=== PATIENT | female | born 1940 | race Caucasian/White ===

== ENCOUNTER 2017-07-12 17:58 | Observation (INO) | payer MEDICARE ==
[~2017-07-12] VITALS: Ht 152.4 cm; Wt 113.0 kg
[~2017-07-12 17:58] MED LIST: ADV250INH IH; ALBU8.5H2 INHALATION; CALC600T12 PO; CHOL200025 PO; CRES20T PO; HYDR25TA4 PO; LISI40TA PO; LORA1TAB PO; OXYGEN NASAL; PRAM0.252 PO; RANI150C4 PO; VENL75TA3 PO; WARF2TAB7 PO
[2017-07-12] MEDS ORDERED: Atropine 1 mg/10 mL (Code) Syringe IVPUSH PRN (18:55)
[2017-07-12] MEDS ORDERED: Senna-Docusate 8.6-50 mg Tablet PO PRN (18:55)
[2017-07-12] MEDS ORDERED: Ondansetron 2 mg/mL 2 mL Inj IVPUSH PRN (18:55)
[2017-07-12] MEDS ORDERED: Alum-Mag Hydrox-Simeth 30 mL Suspension PO PRN (18:55)
[2017-07-12] MEDS ORDERED: Polyethylene Glycol (PEG) 17 Gm Powder PO PRN (18:55)
[2017-07-12 18:59] VITALS: BP 143/76; PULSE 70; RESP 20; O2SAT 96
[2017-07-12 19:34] VITALS: PULSE 76
[2017-07-12 19:38] LABS: BASOPHILS % (AUTO) 0.4 % (0-3); EOSINOPHILS % (AUTO) 3.8 % (0-5); MONOCYTES % (AUTO) 9.7 % (4-12); Mean Corpuscular Hemoglobin 29.4 pg (27.0-35.0); Mean Corpuscular Volume 91.2 fL (81-100); NEUTROPHILS % (AUTO) 45.3 % (40-74); Platelet Count 188 bil/L (150-400)
[2017-07-12] MEDS ORDERED: HYDROcodone-APAP 7.5-325 mg Tablet PO PRN (19:50)
[2017-07-12] MEDS ORDERED: VENL75CA95 PO (19:50)
[2017-07-12] MEDS ORDERED: Fluticasone 0.05% 15 Spray/2 Gm 16 Gm Nasal Spray NASAL PRN (19:50)
[2017-07-12] MEDS ORDERED: SENN-133 PO (19:50)
[2017-07-12] MEDS ORDERED: HYDR-3825 PO (19:50)
[2017-07-12] MEDS ORDERED: FLUT16SP NASAL (19:50)
[2017-07-12] MEDS ORDERED: MULT-666 PO (19:50)
[2017-07-12] MEDS ORDERED: DOCU-41 PO (19:50)
[2017-07-12] MEDS ORDERED: RIVA20TA PO (19:50)
[2017-07-12] MEDS ORDERED: TRAZ-115 PO (19:50)
[2017-07-12 20:15] LABS: TROPONIN T < 0.010 ug/L (0.0-0.011)
[2017-07-12 20:16] LABS: Creatine Kinase 103 U/L (21-215); Magnesium 1.8 mg/dL (1.6-2.6)
--- NOTE | 2017-07-12 20:57 | PCM.HPMED ---
Subjective Date of Service Jul 12, 2017 Primary Provider: Admitting Physician: Johanna Burgos DO Primary Care Physician: Isabel Coley MD Attending Physician: Johanna Burgos DO Admit Status: From the Emergency Department, Direct Admit, 23-Hour Observation , Remote Telemetry Chief Complaint: Chest pain. History of Present Illness: Tolu Correia is a 76-year-old female with a past medical history significant for hypertension, hyperlipidemia, aortic stenosis, obstructive sleep apnea on CPAP, and pulmonary emboli on Xarelto who was a direct admit from [facility] for chest pain and pressure. The patient reports that she began experiencing substernal chest pain at rest since 0900. She describes the quality of the chest pain as a pressure sensation. She had accompanying shortness of breath. She had had nausea the last several days but did not have nausea with the substernal chest pressure. The substernal chest pressure did not radiate. However, she has been experiencing some pain underneath her shoulder blades. She reports that the chest pressure resolved with 2 doses of sublingual nitroglycer[place] [facility] She reports that this feels different than her episodes of pulmonary emboli in the past. She denies headache, vision changes, sore throat, current chest pain or shortness of breath, abdominal pain , nausea, vomiting, fever, chills, dysuria, constipation or diarrhea. She has no other complaints. Vital signs on admission: Temperature 36.9. Pulse 70. Respiratory rate 20. Blood pressure 143/76. Pulse ox 96% on room air. She received sublingual nitroglycerin 2 with relief of her chest pain at [facility] [place]. PCP Dr. Coley. . Review of Systems: A comprehensive review of systems was conducted with the patient and found to be negative except as above in the History of Present Illness. . Allergies Coded Allergies: citalopram (Verified Allergy, Severe, 07/12/17) niacin (Verified Allergy, Severe, 07/12/17) piroxicam (Verified Allergy, Severe, 07/12/17) prednisone (Verified Allergy, Severe, 07/12/17) tetracycline (Verified Allergy, Severe, 07/12/17) TAPE (Verified Allergy, Mild, blister, 07/12/17) hydromorphone (Verified Allergy, Unknown, 07/12/17) Uncoded Allergies: CORTISONE (Allergy, Severe, 08/13/09) SULFA (Allergy, Severe, 08/13/09) FELDEEN (Allergy, Unknown, 08/28/15) Home Medications Albuterol 2 puffs every 4 hours as needed for shortness of breath Docusate sodium 100 mg twice a day as needed for constipation. Fluticasone 1 spray intranasally twice a day as needed for allergies. Advair 1 puff inhaled twice a day. Hydrochlorothiazide 25 mg daily. Hydrocodone 7.5 325 mg every 6 hours as needed for pain Lisinopril 40 mg daily. Multivitamin 1 tablet daily. Pramipexole 0.25 mg daily at bedtime. Ranitidine 150 mg twice a day. Rosuvastatin 20 mg daily at bedtime. Senna 8.6 mg every 2 days as needed for constipation. Trazodone 100 mg daily at bedtime. Tums 600 mg daily. Venlafaxine 75 mg daily. Vitamin D3 2000 international units daily. Xarelto 20 mg daily. . PMH 1. Hypertension. 2. Hyperlipidemia. 3. Moderate aortic stenosis. 4. GERD. 5. Seasonal allergies. 6. Obstructive sleep apnea on CPAP. 7. History of PE x 2 on Xarelto. 8. Insomnia. 9. Restless leg syndrome. 10. Depression. 11. Chronic kidney disease. . Surgical History 1. Cholecystectomy. 2. Hysterectomy. 3. SBO with partial colectomy status post repair. 4. Right shoulder surgery. 5. Tonsillectomy. 6. Bilateral cataract removal. 7. Right carpal tunnel release. . Family History Mother who of emphysema. Father who had MS at 55 and coronary angioplasty and from bone cancer 76 years old. One half sister who has had blood clots. . Social History Hx Alcohol Use: Yes (1 glass of wine every 3 months) Hx Substance Use: No Hx Tobacco Use: No Smoking Status: Never Smoker Additional Information The patient is x 47 years. She has 4 children who are healthy. . Exam Vital Signs Vital Signs Label Value Date Time Patient Temperature 36.9 degrees C 07/12/171858 Temperature Source Oral 07/12/171858 Pulse 70 07/12/171858 Respiratory Rate 20 bpm 07/12/171858 Blood Pressure Assessment 143/76 (98) 07/12/171858 Location Right Arm Position Lying Bedside Pulse Oximetry 96 % 07/12/171858 Item Value Date Time Oxygen Delivery Method Room Air 07/12/171858 Exam General: Middle-age female lying in bed and in no acute distress, well-developed , well-nourished, appropriately interactive. HEENT: Normocephalic, atraumatic. External ears without defect. Pupils equal, round, and reactive to light. Anicteric sclerae, moist conjunctivae, and no lid lag. Oropharynx free of erythema and cobble stoning with moist mucosa. Neck: Supple with full range of motion. No jugular venous distension. No bruits. No lymphadenopathy or thyromegaly. Cardiovascular: Regular rate and rhythm with soft holosystolic murmur. No rubs or gallops appreciated Pulmonary: Clear to auscultation bilaterally without crackles, wheezes, or rhonchi. Normal respiratory effort with no use of accessory muscles. Abdomen: Soft, obese, nontender, nondistended, bowel sounds present. No hepatosplenomegaly or masses appreciated. Extremities: No clubbing, cyanosis, or edema. Skin: Normal temperature, turgor, and texture; no rash, ulcers, or subcutaneous nodules appreciated. Neurological: Cranial nerves grossly intact. Normal muscle strength, tone, and bulk. Reflexes, coordination, and sensory function within normal limits. No known gait impairment. Psychiatric: Normal mood and affect. Alert and oriented to person, place, and time. . Lab and Diagnostics Labs Item Value Date Time Sodium Level 141 mEq/L 07/12/171926 Potassium Level 4.1 mEq/L 07/12/171926 Chloride Level 104 mEq/L 07/12/171926 Carbon Dioxide Level 25 mmol/L 07/12/171926 Blood Urea Nitrogen 29 mg/dL H 07/12/171926 Creatinine 1.21 mg/dL H 07/12/171926 Estimat Glomerular Filtration Rate 62 mL/min 07/12/171926 Glucose Level 101 mg/dL H 07/12/171926 Calcium Level 9.5 mg/dL 07/12/171926 Magnesium Level 1.8 mg/dL 07/12/171926 Total Bilirubin 0.3 mg/dL 07/12/171926 Aspartate Amino Transf (AST/SGOT) 17 U/L 07/12/171926 Alanine Aminotransferase (ALT/SGPT) 10 U/L 07/12/171926 Alkaline Phosphatase 68 U/L 07/12/171926 Total Creatine Kinase 103 U/L 07/12/171926 Creatine Kinase MB 2.5 ng/mL 07/12/171926 Troponin T < 0.010 ug/L 07/12/171926 Total Protein 6.5 g/dL 07/12/171926 Albumin 3.8 g/dL 07/12/171926 Thyroid Stimulating Hormone (TSH) 0.638 uIU/mL 07/12/171926 Item Value Date Time White Blood Count 6.9 th/mm3 07/12/171926 Red Blood Count 3.74 mil/mm3 L 07/12/171926 Hemoglobin 11.0 g/dL L 07/12/171926 Hematocrit 34.1 % L 07/12/171926 Mean Corpuscular Volume 91.2 fL 07/12/171926 Mean Corpuscular Hemoglobin 29.4 pg 07/12/171926 Mean Corpuscular Hemoglobin Concent 32.3 % 07/12/171926 Red Cell Distribution Width 14.6 % 07/12/171926 Platelet Count 188 souleymane/L 07/12/171926 Neutrophils (%) (Auto) 45.3 % 07/12/171926 Lymphocytes (%) (Auto) 40.5 % 07/12/171926 Monocytes (%) (Auto) 9.7 % 07/12/171926 Eosinophils (%) (Auto) 3.8 % 07/12/171926 Basophils (%) (Auto) 0.4 % 07/12/171926 X-Rays, CTs and MRIs Portable chest x-ray performed at [facility]: Impression: Negative frontal chest. Electronically signed by: Alexa Maguire M.D. 07/12/2017 3:41 PM [place] time . 12-lead ECG EKG performed [place] [facility]: Sinus rhythm, heart rate 74, normal axis, normal intervals , normal R-wave progression, no pathological Q waves or acute ischemic changes such as ST elevation or depression. . Assessment & Plan Tolu Correia is a 76-year-old female with a past medical history significant for hypertension, hyperlipidemia, aortic stenosis, obstructive sleep apnea on CPAP, and pulmonary emboli on Xarelto who was a direct admit from [facility] for substernal chest pain and pressure. 1. Acute chest pain, present on admission. Active. - The patient presented with atypical substernal chest pain and pressure at rest with associated shortness of breath without radiation and relieved with sublingual nitroglycerin 2. - Cardiac risk factors include: Hypertension, hyperlipidemia, obesity, obstructive sleep apnea on CPAP, and family history. - Differential diagnosis includes: acute coronary syndrome versus worsening aortic stenosis. - Chest pain relieved with sublingual nitroglycerin 2 at [facility]. - EKG at [facility] demonstrated sinus rhythm without any acute ischemic changes such as ST elevation or depression, as above. - PRN EKG for chest pain. - Initial troponin I at [facility] was negative. Initial troponin < 0.010. Monitor serial troponin 3. - Chest x-ray performed at [facility] did not demonstrate any acute cardiopulmonary process, as above. - Continue rosuvastatin 20 mg daily at bedtime and lisinopril 40 mg daily. - Continue Xarelto for now pending cardiology's recommendations. - Fasting lipid panel ordered for tomorrow morning. - Ordered exercise stress test with echocardiogram and Latrice backup. NPO at midnight. - Dr. López the patient's american sign language interpreter plans to see her tomorrow. Cardiology has not been officially consulted. Chronic problems: 2. Chronic kidney disease, present on admission. Stable. - Initial creatinine 1.21. Baseline creatinine 1.2-1.3. - Avoid nephrotoxic agents. - Will hold off on IV fluid hydration as patient has moderate aortic stenosis. - Continue monitor creatinine daily. 3. History of bilateral pulmonary emboli, not present on admission. Stable. - Continue Xarelto 20 mg daily. - Continue albuterol 2 puffs every 4 hours as needed for shortness of breath and Advair 1 puff inhaled twice a day. Not clear if patient has COPD secondary to history of PEs. 4. Hypertension, present on admission. Stable. - Continue hydrochlorothiazide 25 mg daily and lisinopril 40 mg daily. 5. Hyperlipidemia, present on admission. Stable. - Continue rosuvastatin 20 mg daily at bedtime. 6. Aortic stenosis, present on admission. Presumed Stable. - Ordered echocardiogram to assess for worsening valvular disease. 7. GERD, present on admission. Stable. - Continue equivalent of ranitidine 150 mg twice a day. 8. Seasonal allergies, present on admission. Stable. - Continue fluticasone 1 spray intranasally twice a day as needed for allergies. 9. Obstructive sleep apnea on CPAP, present on admission. Stable. - Patient plans to have CPAP brought in. - May use nocturnal oxygen as needed. 10. Insomnia, present on admission. Stable. - Continue trazodone 100 mg daily at bedtime. 11. Restless leg syndrome, present on admission. Stable. - Continue pramipexole 0.25 mg daily at bedtime. 12. Depression, present on admission. Stable. - Continue venlafaxine 75 mg daily. PRN antiemetics: Zofran and Maalox. PRN bowel regimen: Senna and MiraLAX. PRN analgesics: Tylenol. Patient is admitted under observation status with expected length of stay less than 2 midnights due to severity of presenting symptoms, risk of adverse event, and complexity of treatment plan. . VTE Prophylaxis: Sub-Q Heparin (Unfractionated) Resuscitation Status: CPR: Attempt Resuscitation Attending Statement The patient was seen and examined together with house staff on 07/12/2017 and I agree with the history, exam and plan as outlined in the note above. copies to: Isabel Coley MD, [place] M DO Jul 12, 2017 18:57 Vivian Contreras DO Jul 13, 2017 02:13
[2017-07-12 21:10] LABS: APPEARANCE,URINE CLEAR (CLEAR,HAZY); COLOR,URINE YELLOW (YELLOW); PH,URINE 6.5 (5.0-8.0)
[2017-07-12 21:11] LABS: OCCULT BLOOD,URINE NEGATIVE (NEGATIVE); UROBILINOGEN,URINE NORMAL (NORMAL)
[2017-07-12] MEDS ORDERED: Albuterol 2.5 mg/3 mL Inhalation Solution NEB PRN (21:19)
[2017-07-12] MEDS: Fluticasone-Salmererol 250-50 Inhaler INHALATION SCH (21:55)
[2017-07-13 00:14] VITALS: BP 110/68; PULSE 88; RESP 20; O2SAT 95
[2017-07-13] MEDS ORDERED: Heparin 5,000 Unit/mL Inj SUBQ SCH (00:30)
[2017-07-13 01:56] LABS: Creatine Kinase 106 U/L (21-215)
[2017-07-13 05:15] VITALS: BP 116/73; PULSE 68; RESP 20; O2SAT 95
[2017-07-13 05:36] LABS: BASOPHILS % (AUTO) 0.5 % (0-3); MONOCYTES % (AUTO) 9.6 % (4-12); Mean Corpuscular Hemoglobin 29.9 pg (27.0-35.0); Mean Corpuscular Volume 92.4 fL (81-100); NEUTROPHILS % (AUTO) 43.7 % (40-74); Platelet Count 193 bil/L (150-400)
[2017-07-13] MEDS ORDERED: Lisinopril 40 Tablet PO SCH (08:30)
[2017-07-13] MEDS ORDERED: Venlafaxine XR 75 mg ER24 Capsule PO SCH (08:30)
[2017-07-13 08:54] VITALS: BP 131/79; PULSE 71; RESP 19; O2SAT 95
[2017-07-13] MEDS: Fluticasone-Salmererol 250-50 Inhaler INHALATION SCH (08:57)
[2017-07-13 10:15] VITALS: PULSE 71
--- NOTE | 2017-07-13 11:17 | DRSVH ---
[facility] [address] [place] [address] Echocardiogram Report Name: MICHEAL LOU RStudy Date: 07/13/2017 Height: 60 in Hospital Exam Location: [facility] Weight: 249 lb Gender: Female BSA: 2.0 m2 : 1940 Age: 76 yrs BP: 116/73 mmHg Reason For Study: CHEST PAIN Ordering Physician: Performed By: Irwin Brennan Interpretation Summary The left ventricle is normal in size. Left ventricular systolic function is normal without focal wall motion abnormalities. The ejection fraction is estimated to be 60-65%. The right ventricle is borderline dilated. The right ventricular systolic function is normal. The ascending aorta is normal in size. No significant changes since prior study. Procedure: A two-dimensional transthoracic echocardiogram with color flow and Doppler was performed in limited views only. The study quality was technically adequate. Comparison is made with the echocardiogram of 06/10/17. The patient was in normal sinus rhythm during the exam. Left Ventricle: The left ventricle is normal in size. There is normal left ventricular wall thickness. Left ventricular systolic function is normal without focal wall motion abnormalities. The ejection fraction is estimated to be 60-65%. Right Ventricle: The right ventricle is borderline dilated. The right ventricular systolic function is normal. Atria: The left atrium is mildly dilated. Right atrial size is normal. Mitral Valve: There is mild mitral annular calcification. The mitral valve leaflets are mildly calcified. There is mild mitral regurgitation. Great Vessels: The ascending aorta is normal in size. The IVC is of normal diameter and collapses greater than 50% with a sniff. This suggests a low right atrial pressure of 3 mm Hg. Pericardium/ Pleura There is no pericardial effusion. MMode/2D Measurements & Calculations LVIDd: 4.7 cm LVIDs: 2.5 cm LA A2 area: 21.1 cm FS: 46.6 % LA A4 area: 24.0 cm IVSd: 0.97 cm LA length (vol): 6.0 cm LVPWd: 0.81 cm LA vol: 71.7 ml LA vol index: 35.0 ml/m2 RA long axis: 5.2 cm asc Aorta Diam: 3.2 cm RA area: 19.2 cm RA vol: 60.3 ml RA : 29.4 ml/m2 LV dotson. diameter/BSA (cm/m^2): 2.3 LV sys. diameter/BSA (cm/m^2): 1.2 RVD1 (basal): 3.8 cm RVD2 (mid): 4.0 cm Reading Physician:EDUARDO
[2017-07-13 13:25] VITALS: BP 124/65; PULSE 65; RESP 20; O2SAT 97
[2017-07-13 16:18] VITALS: BP 118/74; PULSE 74; RESP 19; O2SAT 95
--- NOTE | 2017-07-13 16:24 | PCM.DIMED ---
Discharge Instructions Date of Service Jul 13, 2017 Dates of Hospitalization Jul 12, 2017 at 18:53 Discharge Diagnosis Discharge Diagnosis 1. Acute chest pain, present on admission.resolved ACS ruled out probably due to GERD Chronic problems: 2. Chronic kidney disease, present on admission. Stable. 3. History of bilateral pulmonary emboli, not present on admission. Stable. 4. Hypertension, present on admission. Stable. 5. Hyperlipidemia, present on admission. Stable. 6. Aortic stenosis, present on admission. Presumed Stable. 7. GERD, present on admission. Stable. 8. Seasonal allergies, present on admission. Stable. 9. Obstructive sleep apnea on CPAP, present on admission. Stable. 10. Insomnia, present on admission. Stable. 11. Restless leg syndrome, present on admission. Stable. 12. Depression, present on admission. Stable. Diet Discharge Diet: Low fat, Low Sodium, Heart Healthy Activity Discharge Activity: Limited until seen by PCP Call your provider Call your provider for: Fever or Chills, Shortness of breath, Bleeding, Chest pain, Vomitting, Excessive diarrhea, Weakness (unilateral) Patient Instructions Patient Instructions You were hospitalized due to chest pain which is resolved. ACS/heart attack ruled out. Echocardiogram unchanged from prior studies and normal stress test. Chest pain probably due to acid reflux. Continue ranitidine as usual. Follow -up with PCP in 1-2 weeks. Follow-up Provider: Isabel Coley MD Follow-up with PCP in: 1 week Cory Stratton MD Jul 13, 2017 16:24
--- NOTE | 2017-07-13 19:48 | DRSVH ---
Caution: Report not yet finalized and possibly incomplete! PROCEDURE: ONE DAY PHARMACOLOGICAL STRESS TEST. Rest and pharmacological stress myocardial perfusio n SPECT with gated imaging and ejection fraction RADIOPHARMACEUTICAL: mCi of Tc-99m tetrofosmin IV at rest and mCi of Tc-99m tetrofosmi n IV at peak effect of pharmacological stress. A [id number] was performed. INDICATIONS: Chest pain TECHNIQUE: Radiopharmaceutical was injected at peak stress test, and also at rest. SPECT images wer e obtained. SPECT myocardial perfusion images were displayed in short axis, horizontal long axis, an d vertical long axis views. Gated images were reviewed using [employer] software. COMPARISON: None. CARDIAC STRESS: A pharmacologic stress test was performed under the supervision of attending staff u sing an infusion of Lexiscan. Hemodynamic Data: There is normal blood pressure and heart rate response to pharmacologic stress. Symptoms: The patient denied anginal chest pain. Aminophylline: 100 mg. EKG: No diagnostic changes of ischemia, no ectopy. FINDINGS: Raw Data: There is good myocardial uptake of radiotracer. No significant motion artifact. Left Ventricular Function: Gated images demonstrate normal left ventricular wall thickening. No seg mental wall motion abnormalities. No transient ischemic dilation visually. Left ventricular resting end diastolic volume is 80 mL. Left ventricular stress ejection fraction is 81%; normal range is ab ove 45%. Myocardial Perfusion: There is normal distribution of activity in the right and left ventricular nataliya cardium. No fixed or reversible perfusion defects. IMPRESSION: 1. No significant ST-T changes. 2. No chest pain. 3. No arrhythmia. 4. No ischemia. 5. Normal ejection fraction. Dictated by: Diego López M.D. on 07/13/2017 at 16:49 Transcribed by: ANGELICA on 07/13/2017 at 22:48 Blanks in RADIOPHARMACEUTICAL section of template, thanks!
--- NOTE | 2017-07-13 20:32 | PCM.DC.MED ---
Discharge Summary Date of Service Jul 13, 2017 Dates of Hospitalization Date of Hospital Admission Jul 12, 2017 at 18:53 Date of Discharge: Jul 13, 2017 Providers: Admitting Physician: Vivian Contreras DO Primary Care Physician: Isabel Coley MD Attending Physician: Cory Stratton MD Diagnosis at Time of Discharge Diagnosis at Time of Discharge 1. Acute chest pain, present on admission.resolved ACS ruled out probably due to GERD Chronic problems: 2. Chronic kidney disease, present on admission. Stable. 3. History of bilateral pulmonary emboli, not present on admission. Stable. 4. Hypertension, present on admission. Stable. 5. Hyperlipidemia, present on admission. Stable. 6. Aortic stenosis, present on admission. Presumed Stable. 7. GERD, present on admission. Stable. 8. Seasonal allergies, present on admission. Stable. 9. Obstructive sleep apnea on CPAP, present on admission. Stable. 10. Insomnia, present on admission. Stable. 11. Restless leg syndrome, present on admission. Stable. 12. Depression, present on admission. Stable. Consultations cardiology Dr López by phone Procedures XRay, CTs & MRIs Portable chest x-ray performed at [facility]: Impression: Negative frontal chest. Electronically signed by: Alexa Maguire M.D. 07/12/2017 3:41 PM [place] time . ECG 12 Lead EKG performed at [facility]: Sinus rhythm, heart rate 74, normal axis, normal intervals , normal R-wave progression, no pathological Q waves or acute ischemic changes such as ST elevation or depression. . Cardiac Echo Impression Interpretation Summary The left ventricle is normal in size. Left ventricular systolic function is normal without focal wall motion abnormalities. The ejection fraction is estimated to be 60-65%. The right ventricle is borderline dilated. The right ventricular systolic function is normal. The ascending aorta is normal in size. No significant changes since prior study. Other Diagnostics STRESS TEST NEGATIVE PROCEDURE: ONE DAY PHARMACOLOGICAL STRESS TEST. Rest and pharmacological stress myocardial perfusion SPECT with gated imaging and ejection fraction RADIOPHARMACEUTICAL: mCi of Tc-99m tetrofosmin IV at rest and mCi of Tc-99m tetrofosmin IV at peak effect of pharmacological stress. A one- day-protocol was performed. INDICATIONS: Chest pain FINDINGS: Raw Data: There is good myocardial uptake of radiotracer. No significant motion artifact. Left Ventricular Function: Gated images demonstrate normal left ventricular wall thickening. No segmental wall motion abnormalities. No transient ischemic dilation visually. Left ventricular resting end diastolic volume is 80 mL. Left ventricular stress ejection fraction is 81%; normal range is above 45%. Myocardial Perfusion: There is normal distribution of activity in the right and left ventricular myocardium. No fixed or reversible perfusion defects. IMPRESSION: 1. No significant ST-T changes. 2. No chest pain. 3. No arrhythmia. 4. No ischemia. 5. Normal ejection fraction. Dictated by: Diego López M.D. on 07/13/2017 at 16:49 Brief History per HPI Tolu Correia is a 76-year-old female with a past medical history significant for hypertension, hyperlipidemia, aortic stenosis, obstructive sleep apnea on CPAP, and pulmonary emboli on Xarelto who was a direct admit from [facility] for chest pain and pressure. The patient reports that she began experiencing substernal chest pain at rest since 0900. She describes the quality of the chest pain as a pressure sensation. She had accompanying shortness of breath. She had had nausea the last several days but did not have nausea with the substernal chest pressure. The substernal chest pressure did not radiate. However, she has been experiencing some pain underneath her shoulder blades. She reports that the chest pressure resolved with 2 doses of sublingual nitroglycerin at [facility]. She reports that this feels different than her episodes of pulmonary emboli in the past. She denies headache, vision changes, sore throat, current chest pain or shortness of breath, abdominal pain , nausea, vomiting, fever, chills, dysuria, constipation or diarrhea. She has no other complaints. Vital signs on admission: Temperature 36.9. Pulse 70. Respiratory rate 20. Blood pressure 143/76. Pulse ox 96% on room air. She received sublingual nitroglycerin 2 with relief of her chest pain at [facility] ED. PCP Dr. Coley. . Hospital Course Tolu Correia is a 76-year-old female with a past medical history significant for hypertension, hyperlipidemia, aortic stenosis, obstructive sleep apnea on CPAP, and pulmonary emboli on Xarelto who was a direct admit from [facility] for substernal chest pain and pressure. 1. Acute chest pain, present on admission. resolved,ACS ruled out - The patient presented with atypical substernal chest pain and pressure at rest with associated shortness of breath without radiation and relieved with sublingual nitroglycerin 2.ACS ruled out based on EKG,echo,stress test .pain resolved . probably due to GERD,advised to c/w ranitidine - Cardiac risk factors include: Hypertension, hyperlipidemia, obesity, obstructive sleep apnea on CPAP, and family history. - EKG at [facility] demonstrated sinus rhythm without any acute ischemic changes such as ST elevation or depression, as above. - Continue rosuvastatin 20 mg daily at bedtime and lisinopril 40 mg daily. - Continue Xarelto - d/w Dr. López the patient's dollyman Chronic problems: 2. Chronic kidney disease, present on admission. Stable. - Initial creatinine 1.21. Baseline creatinine 1.2-1.3. 3. History of bilateral pulmonary emboli, not present on admission. Stable. - Continue Xarelto 20 mg daily. - Continue albuterol 2 puffs every 4 hours as needed for shortness of breath and Advair 1 puff inhaled twice a day -PE workup not done. Patient on Ac and compliant. no EKG or echo evidence of large PE. pain resolved.no leg swelling .may need to do VQ scan if pain recurs 4. Hypertension, present on admission. Stable. - Continue hydrochlorothiazide 25 mg daily and lisinopril 40 mg daily. 5. Hyperlipidemia, present on admission. Stable. - Continue rosuvastatin 20 mg daily at bedtime. 6. Aortic stenosis, present on admission. Presumed Stable. stable 7. GERD, present on admission. Stable. - Continue equivalent of ranitidine 150 mg twice a day. 8. Seasonal allergies, present on admission. Stable. - Continue fluticasone 1 spray intranasally twice a day as needed for allergies. 9. Obstructive sleep apnea on CPAP, present on admission. Stable. - Patient has CPAP 10. Insomnia, present on admission. Stable. - Continue trazodone 100 mg daily at bedtime. 11. Restless leg syndrome, present on admission. Stable. - Continue pramipexole 0.25 mg daily at bedtime. 12. Depression, present on admission. Stable. - Continue venlafaxine 75 mg daily. discharged home stable on discharge she agrees with plan of care Exam Vital Signs (Last) Date Time Temp Pulse Resp B/P Pulse Ox O2 Delivery O2 Flow Rate FiO2 9/26/17 16:18 36.7 74 19 118/74 95 Room Air 07/13/17 00:14 2.00 Exam General: Middle-age female lying in bed and in no acute distress, well-developed , well-nourished, appropriately interactive. HEENT: Normocephalic, atraumatic. External ears without defect. Pupils equal, round, and reactive to light. Anicteric sclerae, moist conjunctivae, and no lid lag. Oropharynx free of erythema and cobble stoning with moist mucosa. Neck: Supple with full range of motion. No jugular venous distension. No bruits. No lymphadenopathy or thyromegaly. Cardiovascular: Regular rate and rhythm with soft holosystolic murmur. No rubs or gallops appreciated Pulmonary: Clear to auscultation bilaterally without crackles, wheezes, or rhonchi. Normal respiratory effort with no use of accessory muscles. Abdomen: Soft, obese, nontender, nondistended, bowel sounds present. No hepatosplenomegaly or masses appreciated. Extremities: No clubbing, cyanosis, or edema. Skin: Normal temperature, turgor, and texture; no rash, ulcers, or subcutaneous nodules appreciated. Neurological: Cranial nerves grossly intact. Normal muscle strength, tone, and bulk. Reflexes, coordination, and sensory function within normal limits. No known gait impairment. Psychiatric: Normal mood and affect. Alert and oriented to person, place, and time. . Test 07/12/17 19:27 07/12/17 20:43 07/13/17 01:02 07/13/17 05:10 Hemoglobin A1c 5.7% (4.8-5.6) Magnesium Level 1.8mg/dL (1.6-2.6) Total Bilirubin 0.3mg/dL (0.0-1.2) Aspartate Amino Transf (AST/SGOT) 17U/L (0-50) Alanine Aminotransferase (ALT/SGPT) 10U/L (0-32) Alkaline Phosphatase 68U/L (25-165) Total Protein 6.5g/dL (6.4-8.4) Albumin 3.8g/dL (3.4-5.0) Thyroid Stimulating Hormone (TSH) 0.638uIU/mL (0.450-4.500) Urine Color Yellow (YELLOW) Urine Appearance Clear (CLEAR,HAZY) Urine pH 6.5 (5.0-8.0) Urine Specific [place] 1.010 (1.003-1.035) Urine Protein Negativemg/dL (NEG,TRACE) Urine Glucose (UA) Negativemg/dL (NEGATIVE) Urine Ketones Negativemg/dL (NEGATIVE) Urine Occult Blood Negative (NEGATIVE) Urine Nitrite Negative (NEGATIVE) Urine Bilirubin Negative (NEGATIVE) Urine Urobilinogen Normalmg/dL (NORMAL) Urine Leukocyte Esterase Moderate (NEGATIVE) Urine RBC 0-2/hpf (0-2) Urine WBC 6-10/hpf (0-5) Urine Epithelial Cells Few/hpf (NONE-MOD) Urine Crystals None seen (NONE SEEN) Urine Bacteria Few/hpf (NONE-FEW) Urine Hyaline Casts None/lpf (NONE) Urine Granular Casts None seen (NONE SEEN) Urine Waxy Casts None seen (NONE SEEN) Urine Red Blood Cell Casts None seen (NONE SEEN) Urine White Blood Cell Casts None seen (NONE SEEN) Urine Mucus None seen (None Seen) Urine Trichomonas None seen (NONE SEEN) Urine Yeast None (NONE SEEN) Urinalysis Comment None Urine Culture Reflexed Indicated Total Creatine Kinase 106U/L (21-215) Creatine Kinase MB 2.5ng/mL (0.0-5.3) Creatine Kinase MB % % (0.0-5.0) Troponin T 0.010ug/L (0.0-0.011) White Blood Count 6.6th/mm3 (3.8-10.1) Red Blood Count 3.84mil/mm3 (3.90-5.20) Hemoglobin 11.5g/dL (12.0-15.6) Hematocrit 35.5% (35.0-46.0) Mean Corpuscular Volume 92.4fL (81-100) Mean Corpuscular Hemoglobin 29.9pg (27.0-35.0) Mean Corpuscular Hemoglobin Concent 32.4% (32.0-37.0) Red Cell Distribution Width 14.7% (12.3-15.4) Platelet Count 193bil/L (150-400) Neutrophils (%) (Auto) 43.7% (40-74) Lymphocytes (%) (Auto) 41.9% (14-46) Monocytes (%) (Auto) 9.6% (4-12) Eosinophils (%) (Auto) 4.0% (0-5) Basophils (%) (Auto) 0.5% (0-3) Test 07/13/17 05:15 Sodium Level 141mEq/L (134-144) Potassium Level 4.4mEq/L (3.5-5.2) Chloride Level 104mEq/L (97-108) Carbon Dioxide Level 27mmol/L (18-29) Blood Urea Nitrogen 26mg/dL (8-27) Creatinine 1.21mg/dL (0.57-1.00) Estimat Glomerular Filtration Rate 62mL/min (>59) Glucose Level 97mg/dL (60-99) Calcium Level 9.8mg/dL (8.5-10.1) Triglycerides Level 220mg/dL (0-149) Cholesterol Level 153mg/dL (100-199) LDL Cholesterol, Calculated 54.000mg/dL (0-99) VLDL Cholesterol 44.000mg/dL HDL Cholesterol 55mg/dL (>39) Cholesterol/HDL Ratio 2.78 (0.0-4.4) Discharge Medications Discharge Medications Calcium Carbonate (Calcium) 600 Mg Tablet 600 MG PO DAILY (Reported) Cholecalciferol (Vitamin D3) (Vitamin D3) 2,000 Unit Tablet 2,000 UNIT PO DAILY (Reported) Fluticasone/Salmeterol (Advair 250-50 Diskus) 60 Puff/Inh Disk 1 PUFF IH BID ( Reported) Hydrochlorothiazide (Hydrochlorothiazide) 25 Mg Tablet 25 MG PO DAILY (Reported ) Lisinopril (Lisinopril) 40 Mg Tablet 40 MG PO QAM (Reported) Multivitamin (Once Daily) 1 Each Tablet 1 EACH PO DAILY (Reported) Pramipexole Dihydrochloride (Mirapex) 0.25 Mg Tablet 0.25 MG PO HS (Reported) Ranitidine (Ranitidine) 150 Mg Capsule 150 MG PO BID (Reported) Rivaroxaban (Xarelto) 20 Mg Tablet 20 MG PO QPM (Reported) Rosuvastatin Calcium (Crestor) 20 Mg Tablet 20 MG PO QPM (Reported) Trazodone (Trazodone) 50 Mg Tablet 100 MG PO HS (Reported) Venlafaxine ER (Venlafaxine ER) 75 Mg Cap.er.24h 75 MG PO DAILY (Reported) As needed Albuterol HFA (Proair HFA) 8.5 Gm Hfa.aer.ad 2 PUFFS INHALATION Q4H PRN PRN For Shortness of Breath (Reported) Docusate Sodium (Colace) 100 Mg Capsule 100 MG PO BID PRN PRN For Constipation ( Reported) Fluticasone Propionate (Fluticasone Propionate Nasal) 16 Gm [place].susp 1 SPRAY NASAL BID PRN PRN allergies (Reported) Hydrocodone-Acetaminophen 7.5-325 mg (Hydrocodone-Acetaminophen 7.5-325 mg) 1 Each Tablet 1 TAB PO q6 hours PRN PRN For Pain (Reported) Sennosides (Senna) 8.6 Mg Tablet 8.6 MG PO every two days PRN PRN For Constipation (Reported) Followup Plan Disposition: home Discharge Diet: Low fat, Low Sodium, Heart Healthy Discharge Activity: Limited until seen by PCP Patient Instructions You were hospitalized due to chest pain which is resolved. ACS/heart attack ruled out. Echocardiogram unchanged from prior studies and normal stress test. Chest pain probably due to acid reflux. Continue ranitidine as usual. Follow -up with PCP in 1-2 weeks. Follow-up Provider: Isabel Coley MD Follow-up with PCP in: 1 week copies to: Isabel Coley MD, [place] MD Jul 13, 2017 20:32
== END 2017-07-13 18:08 | disposition home or self-care (01) ==
LOC: MPC 18:53 → INTOOBSV 18:53
PROVIDERS: ADMIT Internal Medicine; ATTEND Internal Medicine
DX: R07.9 Chest pain, unspecified (principal); I12.9 Hypertensive chronic kidney disease with stage 1 through stage 4 chronic kidney disease, or unspecified chronic kidney disease; E78.5 Hyperlipidemia, unspecified; I35.0 Nonrheumatic aortic (valve) stenosis; G47.33 Obstructive sleep apnea (adult) (pediatric); K21.9 Gastro-esophageal reflux disease without esophagitis; G25.81 Restless legs syndrome; F32.9 Major depressive disorder, single episode, unspecified; N18.9 Chronic kidney disease, unspecified; Z86.711 Personal history of pulmonary embolism; Z79.01 Long term (current) use of anticoagulants; Z88.8 Allergy status to other drugs, medicaments and biological substances; Z91.048 Other nonmedicinal substance allergy status; Z90.710 Acquired absence of both cervix and uterus
CPT/HCPCS: 36415; 78452; 80048; 80053; 80061; 81000; 82550; 82553; 83036; 83735; 84443; 84484; 85025; 87086; 87088; 93005; 93017; A9502; C8924; G0378; G0379; J0280; J2785